=== PATIENT | male | born 1985 | race Caucasian/White ===

== ENCOUNTER 2016-12-06 05:50 | Day surgery (SDC) | payer OTHER ==
[~2016-12-06] VITALS: Ht 180.3 cm; Wt 119.7 kg
[2016-12-06] MEDS ORDERED: metformin (07:12)
[2016-12-06] MEDS ORDERED: PROPOFOL 40 ML ONE (07:34)
[2016-12-06] MEDS ORDERED: LIDOCAINE 2% (SDV) 5 ML INJ ONE (07:34)
[2016-12-06 07:37] VITALS: Ht 180.3 cm; Wt 119.7 kg
[2016-12-06 07:38] VITALS: BP 134/77; PULSE 72; RESP 18
[2016-12-06 08:45] VITALS: BP 123/70; PULSE 86; RESP 18
--- NOTE | 2016-12-06 11:34 | GILP ---
DATE OF PROCEDURE: NAME OF PROCEDURE: Colonoscopy. SURGEON: Oscar Brown MD PREOPERATIVE DIAGNOSES: Rectal bleeding. POSTOPERATIVE DIAGNOSES: 1. Colonoscopy all the way to the cecum. 2. Internal hemorrhoids. 3. No colitis or neoplasm was identified. INDICATION FOR THE PROCEDURE: Mr. Conor Hutchison is a 30-year-old male patient who had rectal bleedin g and lower abdominal pain. The patient is scheduled for colonoscopy for further evaluation. The procedure and possible complications were well explained to the patient. He understood and cons ented to the procedure. DESCRIPTION OF PROCEDURE: Under the influence of anesthesia, the colonoscope was carefully introduc ed in the rectum and under direct vision it was advanced all the way to the cecum. FINDINGS: The patient had internal hemorrhoids. No colitis or neoplasm was identified. He tolerated the procedure very well and there was no complication from the procedure. At the end o f the procedure he was awake with stable vital signs and he was discharged [facility] IMPRESSION: 1. Colonoscopy all the way to the cecum. 2. Internal hemorrhoids. 3. No colitis or neoplasm was identified. PLAN: Anusol-HC suppositories at bedtime p.r.n. Dictated By: OSCAR CAVANAUGH/NIKOLAI Conf#: [id number] DID#: [id number]
== END 2016-12-06 08:31 | disposition home or self-care (01) ==
LOC: GIL 05:50
PROVIDERS: ATTEND Internal Medicine Gastroenterology
DX: K62.5 Hemorrhage of anus and rectum (principal); K64.8 Other hemorrhoids; E11.9 Type 2 diabetes mellitus without complications
CPT/HCPCS: 82962